=== PATIENT | female | born 1975 | race African-American/Black ===

== ENCOUNTER 2017-11-18 11:47 | Emergency (ER) | payer OTHER ==
--- NOTE | 2017-11-18 19:22 | RAD ---
LUMBAR SPINE THREE VIEWS 11/18/17 Mild scoliosis convexed left was noted. The lumbar vertebrae all appeared intact with no sign of frac ture. There is slight disc space narrowing at L5-S1 as well as some posterior osteophytes at this lev el. The SI joints are symmetrical. On one of the lateral views, there is the suggestion of a gap between the last coccygeal segments and the remainder of the sacrum/coccyx. See sacrum/coccyx dictation to kathy barrett. IMPRESSION: 1. No acute lumbar findings. 2. Mild degenerative changes at L5-S1. POS: HOME
--- NOTE | 2017-11-18 19:24 | RAD ---
SACRUM AND COCCYX 11/18/17 Several views are submitted. The sacrum appears intact. The arcuate lines of the sacrum appear normal and the SI joints are symmetrical. On the lateral view, there is a gap between the last coccygeal segments and the remainder of the sacr um. My suspicion is that this is traumatic in nature and probably recent. A fracture line, per se is not seen. IMPRESSION: Slight displacement of the last two coccygeal segments as described above. Presumably due to trauma. POS: HOME
== END 2017-11-18 12:45 | disposition home or self-care (01) ==
LOC: BURERS 11:47
DX: S30.0XXA Contusion of lower back and pelvis, initial encounter (principal); I10 Essential (primary) hypertension; I47.1 Supraventricular tachycardia; Z79.4 Long term (current) use of insulin; Z79.899 Other long term (current) drug therapy; W18.30XA Fall on same level, unspecified, initial encounter
CPT/HCPCS: 72100; 72220